=== PATIENT | female | born 2005 | race Caucasian/White ===

== ENCOUNTER 2025-07-22 23:16 | Emergency (ER) | payer MEDICAID ==
[~2025-07-22] VITALS: Ht 157.5 cm; Wt 72.0 kg
[2025-07-22 23:29] VITALS: TEMP 98.4
[2025-07-23 00:38] VITALS: BP 170/110; PULSE 77; RESP 18; O2SAT 99
[2025-07-23] MEDS: ACETAMINOPHEN 325 MG TABLET PO ONE (01:45)
== END 2025-07-23 01:58 | disposition home or self-care (01) ==
LOC: EMS 23:18
DX: S92.911A Unspecified fracture of right toe(s), initial encounter for closed fracture (principal); I10 Essential (primary) hypertension; W22.8XXA Striking against or struck by other objects, initial encounter; Y93.89 Activity, other specified; Y92.89 Other specified places as the place of occurrence of the external cause; Y99.8 Other external cause status
CPT/HCPCS: 99283